=== PATIENT | female | born 1975 | race Caucasian/White ===

== ENCOUNTER 2019-05-18 16:23 | Emergency (ER) | payer SELFPAY ==
[2019-05-18 16:35] VITALS: BP 98/68; PULSE 109; RESP 22; TEMP 37.7; O2SAT 98
[2019-05-18 17:07] LABS: Add Manual Diff / Slide Review NO; Basophils Absolute Auto 0 /uL (0-100); Basophils Percent Auto 0.1 % (0-2); Eosinophils Absolute Auto 0 /uL (0-450); Hematocrit 42.4 % (36-46); Hemoglobin 14.4 g/dL (12.0-16.0); Lymphocytes Absolute Auto 600 /uL (1100-4500); Lymphocytes Percent Auto 4.9 % (25-40); Mean Corpuscular Hemoglobin 29.4 PG (26-34); Mean Corpuscular Volume 86.3 fL (80-100); Monocytes Absolute Auto 1000 /uL (0-900); Monocytes Percent Auto 8.5 % (3-14); Neutrophils Absolute Auto 10200 /uL (1500-7000); Neutrophils Percent Auto 86.5 % (50-75); Platelet Count 131 X10^3/uL (150-400); Red Blood Cell Count 4.91 X10^6/uL (4.0-5.2); Red Cell Distribution Width 13.7 % (11.6-14.8); White Blood Cell Count 11.8 X10^3/uL (4.5-11.0)
[2019-05-18 17:15] LABS: Alanine Aminotransferase 26 IU/L (9-52); Albumin Globulin Ratio 1.3 (1.0-2.8); Alkaline Phosphatase 72 U/L (38-126); Aspartate Aminotransferase 22 IU/L (14-36); Bilirubin Total 0.8 mg/dL (0.2-1.3); Blood Urea Nitrogen 7 mg/dL (7-17); Calcium 8.9 mg/dL (8.4-10.2); Carbon Dioxide 24 mmol/L (22-32); Chloride 101 mmol/L (98-107); Estimated Glomerular Filt Rate > 60.0 mL/min (>60); Globulin 3.2 g/dL (1.7-4.1); Glucose 102 mg/dL (70-100); HEMOLYSIS < 15 (0-50); Potassium 3.5 mmol/L (3.4-5.1); Sodium 132 mmol/L (137-145); Total Protein 7.2 g/dL (6.3-8.2)
[2019-05-18 17:24] LABS: Influenza A and B by PCR Rapid Negative (Negative)
--- NOTE | 2019-05-18 17:26 | DI.RAD.S_ITS ---
PROCEDURE: XR CHEST 1V INDICATIONS: fever, aches TECHNIQUE: One view of the chest was acquired. COMPARISON: None. FINDINGS: Surgical changes and devices: None. Lungs and pleura: Lungs are clear. No pleural effusions or pneumothorax. Mediastinum: Mediastinal contours appear normal. Heart size is normal. Bones and chest wall: No suspicious bony lesions. Overlying soft tissues appear unremarkable. IMPRESSION: No acute cardiopulmonary findings. Dictated by: Ema Ridley M.D. on 05/18/2019 at 16:54 Approved by: Ema Ridley M.D. on 05/18/2019 at 16:54
--- NOTE | 2019-05-18 17:33 | ED.WEAKNESS ---
HPI - Weakness General Chief complaint: Weakness Stated complaint: headache,body aches, sick Time Seen by Provider: 05/18/19 16:38 Source: patient and family Mode of arrival: ambulatory Limitations: no limitations History of Present Illness HPI Narrative: Patient presents the emergency department complaining of chills, fatigue, and nausea for the last 2 days. Patient states she was at work when she suddenly got a shaking chill and felt very tired. She states she had to go lay in her car at lunch time because she was so tired. Patient states she has been off for the weekend, and has spent most of the time sleeping. She states when she got home from work on the initial day, which was Sunday, she went straight to bed and slept from 6:00 p.m. until 1:00 a.m. without waking up. Patient states she went back to bed immediately, and did not wake up till 2:00 that afternoon. Patient denies any cough or shortness of breath. She has not really felt like eating because she is tired. She has been nauseated when she takes anything by mouth, including water, but has not vomited. No diarrhea. No back pain. Patient has lower extremity aches. She states she had dysuria on the 1st day of illness, but has not noticed any since. No abdominal pain. No chest pain or shortness of breath. No other complaints this time. Related Data Home Medications Medication Instructions Recorded Confirmed aspirin 325 mg PO QDAY #0 08/16/16 Previous Rx's Medication Instructions Recorded metoclopramide HCl 10 mg PO TIDP PRN #90 tab 05/15/16 omeprazole magnesium [Prilosec OTC] 20 mg PO QDAY #30 05/15/16 ondansetron 4 mg PO Q6H PRN #14 tab 05/18/19 sulfamethoxazole-trimethoprim 1 tab PO BID #14 tab 05/18/19 [Bactrim DS] Allergies Allergy/AdvReac Type Severity Reaction Status Date / Time cigarette smoke Allergy Unknown Unverified 01/30/18 12:17 [CIGARETTE SMOKE] tramadol [TRAMADOL] Allergy Unknown NAUSEA AND Unverified 01/30/18 12:17 VOMITING/DIZZINESS Review of Systems Constitutional Reports chills, Denies fever(s), Denies lethargy and Denies weakness Eyes Denies change in vision, Denies eye discharge, Denies irritation and Denies loss of vision ENT Ears, Nose, Mouth, and Throat: Denies change in voice, Denies neck pain and Denies sore throat Cardiovascular Denies chest pain, Denies irregular heart rhythm, Denies lightheadedness, Denies palpitations, Denies dyspnea, Denies dyspnea on exertion and Denies orthopnea Respiratory Denies cough, Denies dyspnea, Denies dyspnea on exertion and Denies wheezing Gastrointestinal Gastrointestinal: Denies abdominal pain, Denies change in bowel habits, Denies diarrhea, Reports nausea and Denies vomiting Genitourinary Denies hematuria, Denies flank pain, Denies urinary incontinence and Denies urinary urgency Musculoskeletal Reports myalgias and Denies neck pain Integumentary/Breasts Denies pruritus, Denies erythema, Denies rash and Denies wounds Neurologic Denies confusion, Denies loss of vision and Denies weakness Psychiatric Denies anxiety, Denies confusion, Denies depression, Denies homicidal ideation and Denies suicidal ideation Endocrine Denies palpitations Hematologic/Lymphatic Denies easy bruising Allergic/Immunologic Denies wheezing [facility] Medical History (Updated 05/18/19 @ 18:05 by Helena Steiner MD) GERD (gastroesophageal reflux disease) (Acute) H/O: hysterectomy (Acute) UTI (urinary tract infection) (Acute) Social History Smoking Status: Never smoker Social History Smoking Status: Never smoker Exam Initial Vital Signs Initial Vital Signs: Vital Signs Temperature 99.9 F H 05/18/19 16:35 Pulse Rate 109 H 05/18/19 16:35 Respiratory Rate 22 05/18/19 16:35 Blood Pressure 98/68 05/18/19 16:35 Pulse Oximetry 98 05/18/19 16:35 Const General: cooperative and well developed Nutritional Appearance: well nourished Orientation: alert, awake, oriented x3 and not confused [facility] Head: normocephalic and atraumatic Ears: external ears normal and TM's normal bilaterally Nose: external nose normal and No nasal discharge Face and sinus: sinuses nontender, face symmetric, no sinus tenderness and No dry mucous membranes Mouth: oral mucosae normal and moist mucous membranes Teeth and gingiva: dentition normal Throat: tonsils normal and uvula midline Eyes General: appearance normal, both eyes and all related structures Eyelids: eyelids normal Conjunctivae: conjunctivae normal Sclera: sclerae normal Pupils: PERRL EOM: EOM intact bilaterally Neck Neck: normal visual inspection, trachea midline, No lymphadenopathy, No midline deformity and No JVD Lymphatic: No lymphedema Chest Chest: normal inspection of the chest Resp Effort & Inspection: normal respiratory effort, able to speak in complete sentences, no respiratory distress and no use of accessory muscles Auscultation: clear to auscultation bilaterally, no rales, no rhonchi and no wheezes Cardio Rate: regular rate Rhythm: regular rhythm Heart Sounds: no click, no gallops, no murmurs and no rubs Pulses: normal peripheral pulses GI Inspection: non-distended Palpation: soft, no hepatosplenomegaly, No guarding, No pulsatile mass and No tender Auscultation: normal bowel sounds Back/Spine/Pelvis Back: No CVA tenderness Cervical Spine: cervical ROM normal and No pain with cervical ROM Thoracic/Lumbar Spine: thoracic and lumbar spine normal to inspection Skin General: no rashes or lesions noted, No jaundice and No petechiae Neuro General: alert, oriented x3, gait normal and no focal motor deficits Speech: speech normal Extrem General: full ROM, no clubbing, cyanosis or edema, no pedal edema and no calf tenderness Psych Appearance: well kempt Mental Status: mental status grossly normal Attitude: cooperative Thought Content: normal and suicidality Judgment: judgment good Course Course Narrative: Patient was treated with IV fluids, Zofran, and Toradol for symptomatic relief. She was worked up with laboratory studies and urinalysis, as well as chest x-ray and EKG. Workup was unremarkable except for a mild leukocytosis with left shift, and a positive urinalysis. Patient was started on antibiotics in the emergency department. She will be placed on antibiotics as an outpatient as well. We have discussed home management of the symptoms, as well as the usual indications for return. Patient has been able to ambulate without difficulty in the emergency department. Orders Ordered: Discontinued Medications Sodium Chloride (Normal Saline 0.9%) 1,000 mls @ 1,000 mls/hr IV BOLUS ONE Stop: 05/18/19 18:22 Last Infusion: 05/18/19 18:44 Dose: 0 mls/hr Admin: 05/18/19 17:39 Dose: 1,000 mls/hr Ketorolac Tromethamine (Toradol) 30 mg IV NOW ONE Stop: 05/18/19 17:24 Last Admin: 05/18/19 17:38 Dose: 30 mg Ondansetron HCl (Zofran) 4 mg IV NOW ONE Stop: 05/18/19 17:24 Last Admin: 05/18/19 17:39 Dose: 4 mg Trimethoprim/Sulfamethoxazole (Bactrim Ds) 1 tab PO NOW ONE Stop: 05/18/19 18:01 Last Admin: 05/18/19 18:04 Dose: 1 tab Vital Signs - 8 hr 05/18/19 16:35 Temperature 99.9 F H Pulse Rate 109 H Respiratory Rate 22 Blood Pressure 98/68 Pulse Oximetry 98 MDM - Weakness Medical Records Attestation: I reviewed the patient's medical records. Lab Data Attestation: I reviewed the patient's lab results. Result diagrams: 05/18/19 17:00 05/18/19 17:00 Lab Results 05/18/19 05/18/19 05/18/19 Range/Units 17:00 17:00 17:00 WBC 11.8 H (4.5-11.0) X10^3/uL RBC 4.91 (4.0-5.2) X10^6/uL Hgb 14.4 (12.0-16.0) g/dL Hct 42.4 (36-46) % MCV 86.3 (80-100) fL MCH 29.4 (26-34) PG MCHC 34.0 (30-36) % RDW 13.7 (11.6-14.8) % Plt Count 131 L (150-400) X10^3/uL Neut % (Auto) 86.5 H (50-75) % Lymph % (Auto) 4.9 L (25-40) % [place] % (Auto) 8.5 (3-14) % Eos % (Auto) 0.0 L (2-4) % Baso % (Auto) 0.1 (0-2) % Neut # (Auto) 85363 H (6248-4552) /uL Lymph # (Auto) 600 L (7083-1448) /uL [place] # (Auto) 1000 H (0-900) /uL Eos # (Auto) 0 (0-450) /uL Baso # (Auto) 0 (0-100) /uL Sodium 132 L (137-145) mmol/L Potassium 3.5 (3.4-5.1) mmol/L Chloride 101 (98-107) mmol/L Carbon Dioxide 24 (22-32) mmol/L BUN 7 (7-17) mg/dL Creatinine 0.70 (0.52-1.04) mg/dL Estimated GFR > 60.0 (>60) mL/min BUN/Creatinine Ratio 10.0 (6-22) Glucose 102 H (70-100) mg/dL Calcium 8.9 (8.4-10.2) mg/dL Total Bilirubin 0.8 (0.2-1.3) mg/dL AST 22 (14-36) IU/L ALT 26 (9-52) IU/L Alkaline Phosphatase 72 (38-126) U/L Total Protein 7.2 (6.3-8.2) g/dL Albumin 4.0 (3.5-5.0) g/dL Globulin 3.2 (1.7-4.1) g/dL Albumin/Globulin Ratio 1.3 (1.0-2.8) Urine Color Urine Appearance Urine pH (4.5-8.0) Ur Specific [place] (1.000-1.035) Urine Protein (Negative) Urine Glucose (UA) (Negative) g/dL Urine Ketones (NEGATIVE) Urine Occult Blood (Negative) Urine Nitrate (Negative) Urine Bilirubin (NEGATIVE) Urine Urobilinogen (0.2) E.U./dL Ur Leukocyte Esterase (NEGATIVE) Urine RBC (0-5/HPF) Urine WBC (0-5/HPF) Ur Squamous Epith Cells (0-5/HPF) Amorphous Sediment Urine Bacteria (None) Urine Mucus (Negative) Ur Culture Indicated? Influenza A & B (PCR) Negative (Negative) 05/18/19 Range/Units 17:48 WBC (4.5-11.0) X10^3/uL RBC (4.0-5.2) X10^6/uL Hgb (12.0-16.0) g/dL Hct (36-46) % MCV (80-100) fL MCH (26-34) PG MCHC (30-36) % RDW (11.6-14.8) % Plt Count (150-400) X10^3/uL Neut % (Auto) (50-75) % Lymph % (Auto) (25-40) % [place] % (Auto) (3-14) % Eos % (Auto) (2-4) % Baso % (Auto) (0-2) % Neut # (Auto) (2611-4530) /uL Lymph # (Auto) (3142-0471) /uL [place] # (Auto) (0-900) /uL Eos # (Auto) (0-450) /uL Baso # (Auto) (0-100) /uL Sodium (137-145) mmol/L Potassium (3.4-5.1) mmol/L Chloride (98-107) mmol/L Carbon Dioxide (22-32) mmol/L BUN (7-17) mg/dL Creatinine (0.52-1.04) mg/dL Estimated GFR (>60) mL/min BUN/Creatinine Ratio (6-22) Glucose (70-100) mg/dL Calcium (8.4-10.2) mg/dL Total Bilirubin (0.2-1.3) mg/dL AST (14-36) IU/L ALT (9-52) IU/L Alkaline Phosphatase (38-126) U/L Total Protein (6.3-8.2) g/dL Albumin (3.5-5.0) g/dL Globulin (1.7-4.1) g/dL Albumin/Globulin Ratio (1.0-2.8) Urine Color Yellow Urine Appearance Slightly cloudy Urine pH 7.5 (4.5-8.0) Ur Specific [place] 1.015 (1.000-1.035) Urine Protein Negative (Negative) Urine Glucose (UA) Negative (Negative) g/dL Urine Ketones Trace H (NEGATIVE) Urine Occult Blood 1+ H (Negative) Urine Nitrate Negative (Negative) Urine Bilirubin Negative (NEGATIVE) Urine Urobilinogen 2.0 H (0.2) E.U./dL Ur Leukocyte Esterase 1+ H (NEGATIVE) Urine RBC 0-1/hpf (0-5/HPF) Urine WBC 10-30/hpf H (0-5/HPF) Ur Squamous Epith Cells 1-5 /hpf (0-5/HPF) Amorphous Sediment 1+ Urine Bacteria Many (>30) H (None) Urine Mucus 1+ H (Negative) Ur Culture Indicated? Specimen cultured Influenza A & B (PCR) (Negative) Urine Dip Bedside Urine Glucose Negative Bedside Urine Bilirubin - Negative Bedside Urine Ketone + 15 Urine Specific [place] 1.010 Bedside Urine Occult Blood + Bedside Urine pH 7.5 Bedside Urine Protein +/- 15 Bedside Urine Urobilinogen +/- 1mg Bedside Urine Nitrite - Negative Bedside Urine Leukocytes + 70 Esterase Imaging Data Chest x-ray: Radiologist's impression: PROCEDURE: XR CHEST 1V INDICATIONS: fever, aches TECHNIQUE: One view of the chest was acquired. COMPARISON: None. FINDINGS: Surgical changes and devices: None. Lungs and pleura: Lungs are clear. No pleural effusions or pneumothorax. Mediastinum: Mediastinal contours appear normal. Heart size is normal. Bones and chest wall: No suspicious bony lesions. Overlying soft tissues appear unremarkable. IMPRESSION: No acute cardiopulmonary findings. Dictated by: Ema Ridley M.D. on 05/18/2019 at 16:54 Approved by: Ema Ridley M.D. on 05/18/2019 at 16:54 ECG Data Attestation: I personally reviewed and interpreted this ECG as follows: (See below) Interpretation: Twelve lead EKG performed May 18, 2019 at 4:39 p.m., as follows: Regular ventricular rhythm with a rate of 86 beats per min MT interval 134 millisecond QRS duration 91 milliseconds QTC interval 393 milliseconds No ectopy No significant ST T wave changes Interpretation: Normal sinus rhythm; no signs of acute ischemia; normal EKG as interpreted by EMD. Discharge Plan Departure Patient Disposition: Home Clinical Impression: Acute dehydration UTI (urinary tract infection) Qualifiers: Urinary tract infection type: acute cystitis Hematuria presence: without hematuria Qualified Code(s): N30.00 - Acute cystitis without hematuria Discharge Date/Time: 05/18/19 18:46 Interventions: ED Discharge Assessment Last Done: 05/18/19 18:45 Instructions: DI for Dehydration -- Adult, DI for Urinary Tract Infection (UTI) Activity Restrictions/Additional Instructions: Your tests, overall, looks good. Urinalysis is positive for infection, which is most likely why you are feeling so bad. You have been treated with IV fluids and antibiotics today. You will need to continue antibiotics for the next 7 days. If you're not feeling better after this course of antibiotics you should follow-up with your primary care physician. If you begin to feel worse after few days, or run high fevers, you should seek immediate medical re-evaluation. Prescriptions: New sulfamethoxazole-trimethoprim [Bactrim DS] 800-160 mg tablet 1 tab PO BID Qty: 14 RF: 0 ondansetron 4 mg tablet,disintegrating 4 mg PO Q6H PRN (Reason: nausea and vomiting) Qty: 14 RF: 0 No Action omeprazole magnesium [Prilosec OTC] 20 MG tablet,delayed release (DR/EC) 20 mg PO QDAY Qty: 30 RF: 1 metoclopramide HCl 10 MG tablet 10 mg PO TIDP PRNQty: 90 RF: 0 aspirin 325 MG tablet,delayed release (DR/EC) 325 mg PO QDAY Qty: 0 RF: 0 Referrals: [facility] [Provider Group]
[2019-05-18] MEDS: KETOROLAC 60 MG/2 ML VIAL 30 MG IV (17:38)
[2019-05-18] MEDS: ONDANSETRON 4 MG/2 ML INJ IV (17:39)
[2019-05-18] MEDS: SODIUM CHLORIDE 0.9% 1,000 ML 1000 ML IV (17:39)
[2019-05-18 17:58] VITALS: BP 130/64; PULSE 90; RESP 18; O2SAT 95
[2019-05-18 18:04] LABS: Bilirubin Urine UA NEGATIVE (NEGATIVE); Color Urine UA YELLOW; Glucose Urine UA NEGATIVE (Negative); Ketones Urine UA TRACE (NEGATIVE); Leukocyte Esterase Urine UA 1+ (NEGATIVE); Nitrite Urine UA NEGATIVE (Negative); Occult Blood Urine UA 1+ (Negative); Protein Urine UA NEGATIVE (Negative); Specific Gravity Urine UA 1.015 (1.000-1.035); pH Urine UA 7.5 (4.5-8.0)
[2019-05-18] MEDS: TRIMETH/SULFA 160/800 (DS) TABLET 1 TAB PO (18:04)
[2019-05-18 18:11] LABS: Appearance Urine UA Slightly Cloudy
[2019-05-18 18:12] LABS: Amorphous Sediment Urine 1+; Bacteria Urine Many (>30); Culture Indicated Urine Specimen Cultured; Mucus Urine 1+ (Negative); RBC Urine 0-1/HPF (0-5/HPF); Squamous Epithelial Cell Urine 1-5 /HPF (0-5/HPF); WBC Urine 10-30/HPF (0-5/HPF)
[2019-05-18 18:45] VITALS: BP 117/62; PULSE 87; RESP 18; O2SAT 97
== END 2019-05-18 18:46 | disposition home or self-care (01) ==
PROVIDERS: Nurse Practitioner Family; Emergency Provider Emergency Medicine
DX: E86.0 Dehydration (principal); N30.00 Acute cystitis without hematuria; R53.83 Other fatigue
CPT/HCPCS: 36591; 71045; 80053; 81001; 81003; 85025; 87077; 87086; 87185; 87186; 87400; 93005; 96361; 96374; 96375; 99283; 99285; J1885; J2405

== ENCOUNTER 2021-05-24 16:48 | Emergency (ER) | payer OTHER, SELFPAY ==
[2021-05-24] VITALS (7 sets, daily range): BP systolic 137–145; BP diastolic 74–87; PULSE 73–87; RESP 15–22; TEMP 36.9; O2SAT 97–98
--- NOTE | 2021-05-24 16:56 | DI.RAD.S_ITS ---
PROCEDURE: XR CHEST 1V INDICATIONS: chest pain TECHNIQUE: One view of the chest was acquired. COMPARISON: [facility], CR, XR CHEST 1V, 05/18/2019, 17:43. FINDINGS: Surgical changes and devices: None. Lungs and pleura: Lungs are clear. No pleural effusions or pneumothorax. Mediastinum: Mediastinal contours appear normal. Heart size is normal. Bones and chest wall: No suspicious bony lesions. Overlying soft tissues appear unremarkable. IMPRESSION: Normal for age, source of current chest pain symptoms is not seen. Dictated by: Pedro Cadena M.D. on 05/24/2021 at 17:17 Approved by: Pedro Cadena M.D. on 05/24/2021 at 17:18
[2021-05-24 17:23] LABS: Add Manual Diff / Slide Review NO; Basophils Absolute Auto 100 /uL (0-100); Basophils Percent Auto 0.7 % (0-2); Eosinophils Absolute Auto 100 /uL (0-450); Eosinophils Percent Auto 1.5 % (2-4); Hematocrit 43.5 % (36-46); Hemoglobin 15.1 g/dL (12.0-16.0); Lymphocytes Absolute Auto 1800 /uL (1100-4500); Lymphocytes Percent Auto 26.1 % (25-40); Mean Corpuscular HGB Conc 34.8 % (30-36); Mean Corpuscular Hemoglobin 29.7 PG (26-34); Mean Corpuscular Volume 85.4 fL (80-100); Monocytes Absolute Auto 500 /uL (0-900); Monocytes Percent Auto 7.2 % (3-14); Neutrophils Absolute Auto 4500 /uL (1500-7000); Neutrophils Percent Auto 64.5 % (50-75); Platelet Count 214 X10^3/uL (150-400); Red Blood Cell Count 5.09 X10^6/uL (4.0-5.2); Red Cell Distribution Width 12.8 % (11.6-14.8); White Blood Cell Count 6.9 X10^3/uL (4.5-11.0)
[2021-05-24 17:48] LABS: Alanine Aminotransferase 64 IU/L (<35); Albumin 4.6 g/dL (3.5-5.0); Albumin Globulin Ratio 1.3 (1.0-2.8); Alkaline Phosphatase 66 U/L (38-126); Aspartate Aminotransferase 31 IU/L (14-36); Bilirubin Total 0.5 mg/dL (0.2-1.3); Blood Urea Nitrogen 17 mg/dL (7-17); Calcium 10.1 mg/dL (8.4-10.2); Carbon Dioxide 24 mmol/L (22-32); Chloride 109 mmol/L (98-107); Creatine Kinase 118 U/L (30-135); Estimated Glomerular Filt Rate > 60.0 mL/min (>60); Globulin 3.5 g/dL (1.7-4.1); Glucose 119 mg/dL (70-100); HEMOLYSIS < 15 (0-50); Lipase 166 U/L (23-300); Potassium 3.9 mmol/L (3.4-5.1); Sodium 142 mmol/L (137-145); Total Protein 8.1 g/dL (6.3-8.2)
[2021-05-24 17:58] LABS: Troponin I < 0.012 ng/mL (0.01-0.034)
[2021-05-24 18:03] LABS: CKMB % Relative Index 1.2 % (1.5-5.0); Creatine Kinase MB 1.41 ng/mL (<2.37)
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
== END 2021-05-24 19:51 | disposition home or self-care (01) ==
PROVIDERS: Emergency Medicine; Emergency Provider Emergency Medicine
DX: I10 Essential (primary) hypertension (principal); R07.9 Chest pain, unspecified
CPT/HCPCS: 36415; 71045; 80053; 82550; 82553; 83690; 84484; 85025; 93005; 99283; 99284

== ENCOUNTER → 2021-07-29 07:39 | Outpatient (CLI) | payer OTHER, SELFPAY ==
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
== END ==
PROVIDERS: Referring Provider Chiropractor; Visit Provider Chiropractor
DX: T14.90XA Injury, unspecified, initial encounter (principal); V89.2XXA Person injured in unspecified motor-vehicle accident, traffic, initial encounter; M50.31 Other cervical disc degeneration, high cervical region; M48.02 Spinal stenosis, cervical region; M51.36 Other intervertebral disc degeneration, lumbar region; M51.37 Other intervertebral disc degeneration, lumbosacral region; M48.061 Spinal stenosis, lumbar region without neurogenic claudication; M48.07 Spinal stenosis, lumbosacral region; E88.2 Lipomatosis, not elsewhere classified
CPT/HCPCS: 72141; 72146; 72148

== ENCOUNTER → 2022-02-27 10:34 | Outpatient (CLI) | payer OTHER, SELFPAY ==
[2022-02-27 14:29] LABS: COVID19 -Nasal RAPID Negative (Negative)
== END ==
PROVIDERS: Visit Provider Physical Medicine & Rehabilitation
DX: Z20.822 Contact with and (suspected) exposure to COVID-19 (principal)
CPT/HCPCS: 87635; C9803

== ENCOUNTER 2022-02-28 08:40 | Outpatient (CLI) | payer OTHER, SELFPAY ==
[2022-02-28] VITALS (9 sets, daily range): BP systolic 124–160; BP diastolic 55–110; PULSE 75–81; RESP 14–23; TEMP 36.3; O2SAT 99–100
--- NOTE | 2022-02-28 08:41 | DI.RAD.S_ITS ---
PROCEDURE: PAIN C/T INTERLAMINAR INJECT INDICATIONS: STENOSIS COMPARISON: [facility], MR, MR CERVICAL SPINE WO CON, 07/29/2021, 7:59. [facility], XR C-SPINE 4-6V, 06/10/2021, 12:33. FINDINGS: Fluoroscopic spot filming was performed to verify placement of a spinal needle at the C6-C7 level, as labeled on the films. Appropriate location of the needle tip was confirmed by injection of iodinated contrast. IMPRESSION: No significant intraprocedural abnormality. Dictated by: Victor Manuel Adames M.D. on 02/28/2022 at 11:04 Approved by: Victor Manuel Adames M.D. on 02/28/2022 at 11:05
[2022-02-28] MEDS: MIDAZOLAM 2 MG/2 ML VIAL IV (09:37)
[2022-02-28] MEDS: BUPIVACAINE 0.25% (PF) VIAL 2 ML INJ (09:42)
[2022-02-28] MEDS: DEXAMETHASONE 10 MG/ML VIAL 30 MG INJ (09:42)
[2022-02-28] MEDS: IOPAMIDOL 15 ML VIAL 3 ML INJ (09:42)
--- NOTE | 2022-02-28 09:53 | P.PCN_ITS ---
Date/Time/Diagnoses Date of procedure: 02/28/22 Time of procedure: 09:53 Pre-procedure diagnosis: 1. CERVICAL STENOSIS, 2. CERVICAL HNP WITH UPPER EXTREMITY RADICULAR FEATURES Post-procedure diagnosis: same Procedure Notes Procedure: 1. FLUORSCOPICALLY GUIDED CONTRAST CONTROLLED INTERLAMINAR EPIDURAL STEROID INJECTION - C6/7 TL POLLY Indications: Kinjal is referred for treatment of Cervical HNP with Upper Extremity Paresthesias. Physician: Leonid Marino Total Fluoroscopy time (seconds): 26 Total sedation minutes: 13 Complications: none Procedure in detail & Post-procedure care: FINDINGS Cervical Stenosis due to disc deterioration and nerve root irritation and nerve root irritation DESCRIPTION OF PROCEDURE Fluoroscopically guided, contrast-controlled C6/7 translaminar epidural steroid injection with conscious sedation. Following review of allergy and review of potential side effects and complications, including, but not necessarily limited to, infection, allergic re action, local tissue breakdown, temporary as well as permanent nerve injury, stroke, paralysis, and possible , the patient indicated that patient understood and agreed to proceed. An informed consent document was signed by the patient, witnessed by a nurse, and placed in the patient's chart. Additionally, other treatment options including modalities, medications, and physical therapy were reviewed with the patient. After review of previous anaesthesic history and IV conscious sedation the patient was deemed safe to proceed with today?s procedure with IV conscious sedation as ASA class II designation. Safety time-out was performed to confirm patient ID, procedure to be performed and site of procedure. IV sedation was accomplished with a combination of 2mg of Versed administered by the RN after DO order, titrated to patient comfort during the course of the procedure while the patient remained responsive to all verbal commands. In the prone position, following sterile prep and drape of the cervical region, the C6/7 translaminar space was identified fluoroscopically. The skin was anesthetized via a 25-gauge 1.5-inch needle with 1% lidocaine solution. At this point, a 25-gauge, 2.5-inch short bevel spinal needle was atraumatically introduced and advanced under fluoroscopic guidance into epidural space at the C6/7 translaminar space. Depth was confirmed on lateral view. Radiological data, including multiple fluoroscopic views of the cervical spine, reveal a spinal needle at the C6/7 translaminar space. Lateral views then show placement of the needle in the epidural space. Subsequent views show contrast material flowing superiorly and inferiorly in the epidural space. DSA fluoroscopy with live contrast injection, once again, confirmed no vascular or intrathecal uptake. At this point, using loss of resistance technique with saline and air, the epidural space was entered. Following negative aspiration, injection of approximately 1.5 cc of Isovue-200 with live fluoroscopy in the AP view confirmed epidural flow in the epidural space without vascular or intrathecal uptake observed. Subsequently, a test dose of 1 cc of 1% lidocaine solution was injected and patient was observed for two minutes without signs or symptoms of complications, including abdominal pain, shortness of breath, bilateral upper or lower extremity weakness, nausea and vomiting, prior to steroid injection. At this point, 3cc or 30mg of dexamethasone was then injected without incident. The patient tolerated the procedure well without signs or symptoms of complications prior to being transferred to the recovery area for further monitoring, The patient was then transferred to the recovery area where they were observed for an appropriate period of time after the injection. The patient reported a VAS score of 6 prior to the procedure and a post-procedure VAS of 0. POST OP INSTRUCTIONS The patient was provided a Pain Log to continue to record their response to the target-specific procedure prior to follow-up visit with the referring provider. Additionally, specific post-injection care instructions and a contact number to our office were provided if concerns arise regarding possible complications associated with the procedure are suspected.
== END 2022-02-28 10:15 | disposition home or self-care (01) ==
PROVIDERS: Referring Provider Physical Medicine & Rehabilitation; Visit Provider Physical Medicine & Rehabilitation
DX: M48.02 Spinal stenosis, cervical region (principal); M50.123 Cervical disc disorder at C6-C7 level with radiculopathy
CPT/HCPCS: 62321; 99152; 99153; J1100; J2250

== ENCOUNTER 2023-02-14 19:26 | Emergency (ER) | payer OTHER, SELFPAY ==
[2023-02-14] VITALS (7 sets, daily range): BP systolic 160–200; BP diastolic 86–107; PULSE 84–95; RESP 16; TEMP 36.8; O2SAT 98–100; BMI 39.4
[2023-02-15] VITALS: BP 169/96
[2023-02-15 00:30] VITALS: BP 187/102
[2023-02-15 00:45] VITALS: PULSE 82; O2SAT 98
[2023-02-15 00:46] VITALS: PULSE 80; O2SAT 100
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
[2023-02-15 01:01] VITALS: BP 167/82
[2023-02-15 01:04] VITALS: PULSE 80; RESP 18; TEMP 36.6; O2SAT 100
== END 2023-02-15 01:23 | disposition home or self-care (01) ==
PROVIDERS: Emergency Provider Emergency Medicine; PCP Nurse Practitioner Family
DX: R21 Rash and other nonspecific skin eruption (principal); R03.0 Elevated blood-pressure reading, without diagnosis of hypertension
CPT/HCPCS: 99281

== ENCOUNTER 2023-02-24 18:03 | Emergency (ER) | payer OTHER, SELFPAY ==
[2023-02-24] VITALS (7 sets, daily range): BP systolic 157–181; BP diastolic 81–100; PULSE 74–91; RESP 18; TEMP 36.9; O2SAT 98–100; BMI 40.6
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
--- NOTE | 2023-02-24 18:30 | DI.US.S_ITS ---
PROCEDURE: US ABDOMEN LIMITED INDICATIONS: POST PRANDIAL EPIGASTRIC PAIN WITH NAUSEA, VOMITING TECHNIQUE: Real-time focused scanning was performed of the abdomen, with image documentation. COMPARISON: None. FINDINGS: Liver measures 17 cm with steatosis. Gallbladder demonstrates no stones. Wall thickness is normal measuring 8 mm. Common bile duct measures 6.5 cm. IMPRESSION: Prominent liver with steatosis. Dictated by: Coreen Benitez M.D. on 02/24/2023 at 19:47 Approved by: Coreen Benitze M.D. on 02/24/2023 at 19:47
[2023-02-24 18:42] LABS: Add Manual Diff / Slide Review NO; Basophils Absolute Auto 0 /uL (0-100); Basophils Percent Auto 0.7 % (0-2); Eosinophils Absolute Auto 200 /uL (0-450); Eosinophils Percent Auto 2.4 % (2-4); Hematocrit 42.5 % (36-46); Lymphocytes Absolute Auto 2200 /uL (1100-4500); Lymphocytes Percent Auto 32.4 % (25-40); Mean Corpuscular HGB Conc 35.2 % (30-36); Mean Corpuscular Hemoglobin 29.4 PG (26-34); Mean Corpuscular Volume 83.4 fL (80-100); Monocytes Absolute Auto 500 /uL (0-900); Monocytes Percent Auto 7.7 % (3-14); Neutrophils Absolute Auto 3900 /uL (1500-7000); Neutrophils Percent Auto 56.8 % (50-75); Platelet Count 217 X10^3/uL (150-400); Red Cell Distribution Width 12.8 % (11.6-14.8); White Blood Cell Count 6.9 X10^3/uL (4.5-11.0)
[2023-02-24 18:48] LABS: Alanine Aminotransferase 103 IU/L (<35); Albumin 4.2 g/dL (3.5-5.0); Albumin Globulin Ratio 1.3 (1.0-2.8); Alkaline Phosphatase 81 U/L (38-126); Aspartate Aminotransferase 52 IU/L (14-36); BUN Creatinine Ratio 18.9 (6-22); Bilirubin Total 0.5 mg/dL (0.2-1.3); Blood Urea Nitrogen 14 mg/dL (7-17); Calcium 9.5 mg/dL (8.4-10.2); Carbon Dioxide 27 mmol/L (22-32); Chloride 104 mmol/L (98-107); Estimated Glomerular Filt Rate > 60 mL/min (>60); Globulin 3.3 g/dL (1.7-4.1); Glucose 117 mg/dL (70-100); HEMOLYSIS < 15 (0-50); Lipase 118 U/L (23-300); Potassium 3.4 mmol/L (3.4-5.1); Sodium 140 mmol/L (137-145); Total Protein 7.5 g/dL (6.3-8.2)
[2023-02-24] MEDS: PANTOPRAZOLE 40 MG VIAL IV (18:49)
[2023-02-24] MEDS: SODIUM CHLORIDE 0.9% 1,000 ML 1000 ML IV (18:49)
--- NOTE | 2023-02-24 19:26 | DI.CT.S_ITS ---
PROCEDURE: CT ABDOMEN PELVIS W CON INDICATIONS: severe abdominal pain, N/V TECHNIQUE: After the administration of oral and IV contrast, axial sections were acquired from the lung bases to the pubic symphysis. Coronal and sagittal reformats were performed. For radiation dose reduction, the following was used: automated exposure control, adjustment of mA and/or kV according to patient size. COMPARISON: [facility], , ABDOMEN LIMITED, 02/24/2023, 19:11. FINDINGS: Image quality: Excellent. Lung bases: Unremarkable. Heart: No significant findings. ABDOMEN: Liver: Liver measures 20.1 cm with steatosis. Gallbladder: Unremarkable. Biliary ducts: Unremarkable. Pancreas: Unremarkable. Spleen: Unremarkable. Adrenal Glands: Unremarkable. Kidneys and Ureters: Simple left hepatic cyst is present. Stomach and Bowel: Stomach, small bowel loops, and colon are nonobstructive. Colonic diverticular present without associated inflammatory change. Peritoneum: No abnormal intraperitoneal fluid. No free air. Ventral Wall: No hernia. Abdominal Nodes: No retroperitoneal or mesenteric adenopathy by size criteria. Vessels: Aorta and inferior vena cava are normal in size. PELVIS: Pelvic Organs: Unremarkable. Bladder: Unremarkable. Pelvic Nodes: No enlarged lymph nodes. Miscellaneous: No inguinal hernias are seen. Bones: Unremarkable. IMPRESSION: Diverticulosis. Hepatic steatosis with hepatomegaly. Dictated by: Coreen Benitez M.D. on 02/24/2023 at 19:59 Approved by: Coreen Benitez M.D. on 02/24/2023 at 20:02
[2023-02-24] MEDS: HYDROMORPHONE 0.5 MG INJ IV (19:32)
[2023-02-24] MEDS: ONDANSETRON 4 MG/2 ML INJ IV (19:37)
[2023-02-24] MEDS: MAG HYDROX/ALUMINUM/SIMETH SUS 20 ML, LIDOCAINE VISCOUS 2% 15 ML PO (21:26)
[2023-02-24] MEDS: ONDANSETRON 4 MG ODT PREPACK 1 BOTTLE MISC (21:27)
[2023-02-24] MEDS: HYDROCODONE/ACET 5/325 PREPACK 1 BOTTLE MISC (21:27)
== END 2023-02-24 21:48 | disposition home or self-care (01) ==
PROVIDERS: Emergency Provider Emergency Medicine; PCP Nurse Practitioner Family
DX: R10.13 Epigastric pain (principal); R11.10 Vomiting, unspecified
CPT/HCPCS: 36415; 74177; 76705; 80053; 81003; 83690; 85025; 96361; 96374; 96375; 99284; C9113; J1170; J2405; Q9967

== ENCOUNTER 2023-10-26 08:09 | Emergency (ER) | payer OTHER, SELFPAY ==
[2023-10-26 08:15] VITALS: BP 166/80; PULSE 82; RESP 16; TEMP 36.4; O2SAT 100; BMI 36.6
[2023-10-26 08:27] VITALS: PULSE 86; RESP 15
[2023-10-26 08:30] VITALS: PULSE 83; RESP 14; O2SAT 99
[2023-10-26 08:31] VITALS: BP 155/90; PULSE 82; RESP 14; TEMP 36.9; O2SAT 98
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
[2023-10-26 08:46] LABS: Add Manual Diff / Slide Review NO; Basophils Absolute Auto 0 /uL (0-100); Basophils Percent Auto 0.4 % (0-2); Eosinophils Absolute Auto 200 /uL (0-450); Eosinophils Percent Auto 2.7 % (2-4); Hematocrit 42.4 % (36-46); Hemoglobin 14.7 g/dL (12.0-16.0); Lymphocytes Absolute Auto 1700 /uL (1100-4500); Lymphocytes Percent Auto 23.6 % (25-40); Mean Corpuscular HGB Conc 34.6 % (30-36); Mean Corpuscular Volume 83.7 fL (80-100); Monocytes Absolute Auto 500 /uL (0-900); Monocytes Percent Auto 6.3 % (3-14); Neutrophils Absolute Auto 5000 /uL (1500-7000); Platelet Count 180 X10^3/uL (150-400); Red Blood Cell Count 5.06 X10^6/uL (4.0-5.2); Red Cell Distribution Width 12.8 % (11.6-14.8); White Blood Cell Count 7.4 X10^3/uL (4.5-11.0)
[2023-10-26 08:58] LABS: BUN Creatinine Ratio 15.7 (6-22); Blood Urea Nitrogen 11 mg/dL (7-17); Calcium 9.7 mg/dL (8.4-10.2); Carbon Dioxide 29 mmol/L (22-32); Chloride 103 mmol/L (98-107); Estimated Glomerular Filt Rate > 60 mL/min (>60); Glucose 89 mg/dL (70-100); HEMOLYSIS < 15 (0-50); Potassium 3.4 mmol/L (3.4-5.1); Sodium 140 mmol/L (137-145)
[2023-10-26 09:00] VITALS: PULSE 79
== END 2023-10-26 09:10 | disposition home or self-care (01) ==
PROVIDERS: Emergency Provider Emergency Medicine; PCP Nurse Practitioner Family
DX: K64.4 Residual hemorrhoidal skin tags (principal)
CPT/HCPCS: 36415; 80048; 81003; 81025; 85025; 99283

== ENCOUNTER 2023-11-13 20:09 | Emergency (ER) | payer OTHER, SELFPAY ==
[2023-11-13 20:11] VITALS: BP 154/72; PULSE 93; RESP 15; TEMP 38.7; O2SAT 98; BMI 36.6
[2023-11-13] MEDS: ACETAMINOPHEN 325 MG TABLET 975 MG PO (20:23)
[2023-11-13 20:59] LABS: Influenza A - CEPHEID Flu A POSITIVE (NEGATIVE); Influenza B - CEPHEID Flu B NEGATIVE (NEGATIVE); Respiratory Syncytial Virus Negative (Negative)
[2023-11-13 21:00] LABS: COVID-19 CEPHEID 4-PLEX PCR Negative (Negative)
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
[2023-11-13 21:14] VITALS: TEMP 37.6
[2023-11-13 21:15] VITALS: BP 154/72; PULSE 88; RESP 16; TEMP 37.6; O2SAT 97
== END 2023-11-13 21:16 | disposition home or self-care (01) ==
PROVIDERS: Emergency Provider Emergency Medicine; PCP Nurse Practitioner Family
DX: J10.1 Influenza due to other identified influenza virus with other respiratory manifestations (principal); R50.9 Fever, unspecified; Z20.822 Contact with and (suspected) exposure to COVID-19
CPT/HCPCS: 0241U; 99282; 99283

== ENCOUNTER 2023-11-17 17:55 | Emergency (ER) | payer OTHER, SELFPAY ==
[2023-11-17 17:58] VITALS: BP 154/85; PULSE 84; RESP 18; TEMP 36.5; O2SAT 100; BMI 36.6
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
[2023-11-17] MEDS: DEXAMETHASONE 10 MG/ML VIAL PO (18:30)
== END 2023-11-17 18:39 | disposition home or self-care (01) ==
PROVIDERS: Emergency Provider Physician Assistant Medical; PCP Nurse Practitioner Family
DX: J10.1 Influenza due to other identified influenza virus with other respiratory manifestations (principal)
CPT/HCPCS: 99283; J1100

== ENCOUNTER 2024-05-18 19:54 | Emergency (ER) | payer OTHER, SELFPAY ==
[2024-05-18 20:02] VITALS: BP 163/86; PULSE 84; RESP 16; TEMP 36.8; O2SAT 99; BMI 38.0
[2024-05-18 20:28] LABS: Add Manual Diff / Slide Review NO; Basophils Absolute Auto 0 /uL (0-100); Basophils Percent Auto 0.6 % (0-2); Eosinophils Absolute Auto 100 /uL (0-450); Eosinophils Percent Auto 1.9 % (2-4); Hematocrit 42.6 % (36-46); Hemoglobin 14.9 g/dL (12.0-16.0); Lymphocytes Absolute Auto 2700 /uL (1100-4500); Lymphocytes Percent Auto 33.8 % (25-40); Mean Corpuscular HGB Conc 34.9 % (30-36); Mean Corpuscular Hemoglobin 29.5 PG (26-34); Mean Corpuscular Volume 84.4 fL (80-100); Monocytes Absolute Auto 500 /uL (0-900); Monocytes Percent Auto 6.3 % (3-14); Neutrophils Absolute Auto 4500 /uL (1500-7000); Neutrophils Percent Auto 57.4 % (50-75); Platelet Count 219 X10^3/uL (150-400); Red Blood Cell Count 5.05 X10^6/uL (4.0-5.2); White Blood Cell Count 7.9 X10^3/uL (4.5-11.0)
[2024-05-18 20:35] LABS: Alanine Aminotransferase 35 IU/L (<35); Albumin 4.3 g/dL (3.5-5.0); Albumin Globulin Ratio 1.4 (1.0-2.8); Alkaline Phosphatase 88 U/L (38-126); Aspartate Aminotransferase 25 IU/L (14-36); BUN Creatinine Ratio 18.7 (6-22); Bilirubin Total 0.5 mg/dL (0.2-1.3); Blood Urea Nitrogen 14 mg/dL (7-17); Calcium 9.5 mg/dL (8.4-10.2); Carbon Dioxide 28 mmol/L (22-32); Chloride 108 mmol/L (98-107); Estimated Glomerular Filt Rate > 60 mL/min (>60); Globulin 3.1 g/dL (1.7-4.1); Glucose 91 mg/dL (70-100); HEMOLYSIS 19 (0-50); Lipase 127 U/L (23-300); Potassium 3.9 mmol/L (3.4-5.1); Sodium 140 mmol/L (137-145); Total Protein 7.4 g/dL (6.3-8.2)
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
[2024-05-18] MEDS: SODIUM CHLORIDE 0.9% 1,000 ML 1000 ML IV (23:20)
[2024-05-18] MEDS: ONDANSETRON 4 MG/2 ML INJ IV (23:20)
[2024-05-19] MEDS: METOCLOPRAMIDE 10 MG/2 ML INJ IV (00:58)
[2024-05-19 02:02] VITALS: BP 142/80; PULSE 81; RESP 18; O2SAT 98
== END 2024-05-19 02:03 | disposition home or self-care (01) ==
PROVIDERS: Emergency Provider Emergency Medicine; PCP Student in an Organized Health Care Education/Training Program
DX: R10.13 Epigastric pain (principal); R11.2 Nausea with vomiting, unspecified
CPT/HCPCS: 36415; 74177; 80053; 81003; 83690; 85025; 96361; 96374; 96375; 99284; J2405; J2765; Q9967